=== PATIENT | male | born 1960 | race Caucasian/White ===

== ENCOUNTER 2020-04-01 21:03 | Emergency (ER) | payer BC ==
[~2020-04-01] VITALS: Ht 185.4 cm; Wt 76.2 kg
--- NOTE | 2020-04-01 21:17 | NUR ---
BIB SELF C/O CONSTIPATION SINCE MONDAY (03/29/2020) @ AROUND 1100. PATIENT STATES THAT HE HAD HERNIA SURGERY AT [facility] ON MONDAY. PATIENT STATES HE HAS BEEN DRINKING WATER AND TAKING DUCOLAX. PATIENT IS UNABLE TO HAVE BOWEL MOVEMENT. AAOX4. NO SOB. BREATHING EVENLY AND UNLABORED ON ROOM AIR.
[2020-04-01 21:37] LABS: BASOPHILS # (AUTO) 0.1 /CMM (0.0-0.2); BASOPHILS % (AUTO) 0.4 % (0.0-2.0); EOSINOPHILS % (AUTO) 0.1 % (0.0-6.0); HEMATOCRIT 42 % (39-51); LYMPHOCYTES # (AUTO) 1.3 /CMM (0.8-4.8); LYMPHOCYTES % (AUTO) 7.6 % (20.0-44.0); MEAN CORPUSCULAR HGB CONC 33 g/dl (31.0-36.0); MEAN CORPUSCULAR VOLUME 97 fL (80-96); MONOCYTES # (AUTO) 1.8 /CMM (0.1-1.30); MONOCYTES % (AUTO) 10.8 % (2.0-12.0); NEUTROPHILS # (AUTO) 13.8 /CMM (1.8-8.9); NEUTROPHILS % (AUTO) 81.1 % (43.0-81.0); PLATELET COUNT (AUTO) 217 /CMM (150-450); RED BLOOD CELL COUNT(AUTO) 4.32 MIL/uL (4.5-6.0)
[2020-04-01] MEDS: IV NS 0.9% 1,000 ML BAG IV ONE (21:41)
--- NOTE | 2020-04-01 21:41 | NUR ---
PATIENT TAKEN TO CT.
[2020-04-01 21:45] LABS: CALCIUM, SERUM 8.7 mg/dL (8.5-10.1); POTASSIUM 3.9 mmol/L (3.5-5.1)
--- NOTE | 2020-04-01 21:51 | NUR ---
RETURN FROM CT.
[2020-04-01] MEDS ORDERED: DOCUSATE SODIUM LIQ 100 MG/10 ML UDC ONE (22:40)
[2020-04-01] MEDS ORDERED: MINERAL OIL 133 ML (PYXIS) 1 EA ENEMA RC ONE (22:40)
[2020-04-01] MEDS ORDERED: LIDOCAINE 2% JEL UROJET 10 ML MM ONE (22:40)
[2020-04-01] MEDS ORDERED: DOCUSATE SODIUM LIQ 100 MG/10 ML UDC PO ONE (23:00)
[2020-04-01] MEDS: DOCUSATE SODIUM LIQ 100 MG/10 ML UDC PO ONE (23:00)
[2020-04-01] MEDS ORDERED: DOCUSATE SODIUM LIQ 100 MG/10 ML UDC NG ONE (23:00)
[2020-04-01] MEDS: MINERAL OIL 133 ML (PYXIS) 1 EA ENEMA RC ONE (23:11)
[2020-04-01] MEDS: LIDOCAINE 2% JEL UROJET 10 ML MM ONE (23:11)
[2020-04-01 23:24] LABS: APPEARANCE,URINE Clear (CLEAR); BILIRUBIN,URINE Negative (NEGATIVE); BLOOD, URINE Negative Ery/uL (NEGATIVE); COLOR,URINE Yellow (YELLOW); KETONES,URINE 15 (NEGATIVE); LEUKOCYTE ESTERASE ,URINE Negative (NEGATIVE); NITRITE, URINE Negative (NEGATIVE); PROTEIN,URINE Negative (NEGATIVE); UGLUCOSE Negative (NEGATIVE); UROBILINOGEN,URINE 0.2 EU/dL (0.2)
[2020-04-01 23:37] LABS: BACTERIA,URINE None seen /HPF (None Seen); RBC,URINE 0-2 /HPF (0-2); SQUAMOUS EPITHELIAL CELL,UR Few /HPF (None Seen); WBC,URINE 0-2 /HPF (0-3)
[2020-04-02] MEDS ORDERED: MAGNESIUM CITRATE 296 ML BOTTLE ONE (00:03)
[2020-04-02] MEDS: MAGNESIUM CITRATE 296 ML BOTTLE PO ONE (00:21)
--- NOTE | 2020-04-02 00:36 | NUR ---
Patient discharged to home in stable condition. Written and verbal after care instructions given. Patient verbalizes understanding of instruction.
--- NOTE | 2020-04-02 00:36 | NUR ---
IV removed. Catheter intact and site benign. Pressure and 4x4 applied to site. No bleeding noted.
[2020-04-02 00:37] VITALS: BP 132/78
[2020-04-02] MEDS ORDERED: SENNOSIDES/DOCUSATE SODIUM 1 TAB TABLET PO SCH (09:00)
== END 2020-04-02 00:41 | disposition home or self-care (01) ==
LOC: ER 21:03
DX: K59.00 Constipation, unspecified (principal); E86.0 Dehydration; Z98.890 Other specified postprocedural states
CPT/HCPCS: 36415; 51702; 74176; 80048; 81001; 85025; 96360; 99284; J3490; J7030; 81000-TC